=== PATIENT | female | born 1960 | race Caucasian/White ===

== ENCOUNTER 2019-11-17 09:44 | Emergency (ER) | payer MEDICARE, BC ==
[~2019-11-17] VITALS: Ht 162.6 cm; Wt 68.2 kg
[2019-11-17] MEDS ORDERED: ZOLOFT 100MG100 MG PO (10:13)
[2019-11-17] MEDS ORDERED: XANAX 0.5MG0.5 MG PO (10:14)
[2019-11-17] MEDS ORDERED: LIPITOR 40MG TA40 MG PO (10:15)
[2019-11-17] MEDS ORDERED: ZANAFLEX2 MG PO (10:17)
[2019-11-17] MEDS ORDERED: TEMOVATE0.05% TP (10:18)
[2019-11-17] MEDS ORDERED: TYLENOL W/COD1 UDTAB PO (10:18)
[2019-11-17] MEDS ORDERED: LIORESAL I (10:19)
[2019-11-17] MEDS ORDERED: [UNRECOGNIZED DRUG - OTHER] (10:19)
[2019-11-17 10:20] VITALS: TEMP 98.4
[2019-11-17] MEDS ORDERED: ESTRACE0.1 MG/GM VG (10:20)
[2019-11-17] MEDS ORDERED: NORCO 325 MG-51 TAB PO (13:16)
[2019-11-17 13:30] VITALS: BP 116/58; PULSE 64
== END 2019-11-17 13:30 | disposition home or self-care (01) ==
LOC: COL.ER 09:44
DX: M75.51 Bursitis of right shoulder (principal); F41.9 Anxiety disorder, unspecified; F32.9 Major depressive disorder, single episode, unspecified; Z90.89 Acquired absence of other organs; Z90.710 Acquired absence of both cervix and uterus; Z98.84 Bariatric surgery status; Z98.890 Other specified postprocedural states

== ENCOUNTER 2020-10-11 14:54 | Emergency (ER) | payer MEDICARE, BC ==
[~2020-10-11] VITALS: Ht 165.1 cm; Wt 68.2 kg
[~2020-10-11 14:54] MED LIST: ESTRACE0.1 MG/GM VG; LIORESAL I; LIPITOR 40MG TA40 MG PO; NORCO 325 MG-51 TAB PO; TEMOVATE0.05% TP; TYLENOL W/COD1 UDTAB PO; XANAX 0.5MG0.5 MG PO; ZANAFLEX2 MG PO; ZOLOFT 100MG100 MG PO; [UNRECOGNIZED DRUG - OTHER]
[2020-10-11 15:04] VITALS: BP 112/69; TEMP 97.7
[2020-10-11 15:25] LABS: BASO % 0.5 % (0.0-2.0); EOS # 0.1 (0.0-0.7); EOS % 1.5 % (0-4.0); GRAN # 3.5 (1.4-6.5); GRAN % 60.5 % (42.2-75.2); HEMATOCRIT 38.5 % (37.0-47.0); HEMOGLOBIN 12.5 g/dl (12.5-16.0); LYMPH # 1.6 (1.2-3.4); LYMPH % 27.6 % (20.0-51.0); MEAN CELL VOLUME 92 fl (80.0-100.0); MEAN CORPUSCULAR HEMOGLOBIN 30 pg (27.0-31.0); MEAN CORPUSCULAR HGB CONC 33 g/dl (33.0-37.0); MEAN PLATELET VOLUME 9.9 fl (7.4-10.4); MONO # 0.6 (0.1-0.6); MONO % 9.7 % (1.7-9.3); PLATELET COUNT 282 K/mm3 (130-400); RED BLOOD COUNT 4.17 M/mm3 (4.10-5.30); REDCELL DISTRIBUTION WIDTH-CV 13.3 % (11.5-14.5)
[2020-10-11 16:35] LABS: ALANINE AMINOTRANSFERASE 22 U/L (4-34); ALBUMIN 4.8 gm/dL (3.5-5.0); ALKALINE PHOSPHATASE 104 U/L (50-136); ANION GAP 9 mmol/L (7-16); AST,SGOT 32 U/L (15-37); BILIRUBIN,TOTAL 0.6 mg/dL (0.0-1.0); BLOOD UREA NITROGEN 23 mg/dL (7-17); CALCIUM 9.6 mg/dL (8.4-10.2); CARBON DIOXIDE 26 mmol/L (22-30); CHLORIDE 100 mmol/L (98-107); CREATININE, serum 0.76 (0.52-1.25); GLUCOSE 134 mg/dL (74-106); LIPASE 101 U/L (23-300); MAGNESIUM 1.8 mg/dL (1.6-2.3); POTASSIUM 4.3 mmol/L (3.4-5.0); SODIUM 135 mmol/L (137-145); TOTAL PROTEIN 7.9 gm/dL (6.4-8.2)
[2020-10-11 16:37] LABS: C-REACTIVE PROTEIN < 0.5 mg/dL (0.0-0.9)
[2020-10-11 17:13] VITALS: PULSE 75
== END 2020-10-11 17:13 | disposition home or self-care (01) ==
LOC: COL.ER 14:54
PROVIDERS: Physician Assistant
DX: R19.7 Diarrhea, unspecified (principal); E86.0 Dehydration; F41.9 Anxiety disorder, unspecified; F32.9 Major depressive disorder, single episode, unspecified; F43.10 Post-traumatic stress disorder, unspecified; Z87.891 Personal history of nicotine dependence; Z98.84 Bariatric surgery status; Z90.710 Acquired absence of both cervix and uterus; Z90.49 Acquired absence of other specified parts of digestive tract; Z88.6 Allergy status to analgesic agent
CPT/HCPCS: J2405; J7030

== ENCOUNTER 2023-09-18 10:16 | Emergency (ER) | payer MEDICARE, BC ==
[~2023-09-18] VITALS: Ht 12.7 cm; Wt 76.8 kg
[2023-09-18 10:26] VITALS: TEMP 98
[2023-09-18 12:05] LABS: ALANINE AMINOTRANSFERASE 19 U/L (0-55); ALBUMIN 3.6 gm/dL (3.4-4.8); ALKALINE PHOSPHATASE 95 U/L (40-150); ANION GAP 12 mmol/L (7-16); AST,SGOT 23 U/L (5-34); BILIRUBIN,TOTAL 0.4 mg/dL (0.2-1.2); BLOOD UREA NITROGEN 13 mg/dL (10-20); CALCIUM 9.1 mg/dL (8.4-10.2); CARBON DIOXIDE 22 mmol/L (23-31); CHLORIDE 109 mmol/L (98-107); CREATININE, serum 0.77 mg/dL (0.57-1.11); GLUCOSE 88 mg/dL (70-99); POTASSIUM 3.9 mmol/L (3.5-4.5); SODIUM 143 mmol/L (136-145); TOTAL PROTEIN 6.5 gm/dL (6.2-8.1)
[2023-09-18 12:11] LABS: TROPONIN-I < 0.010 ng/mL (0.00-0.033)
[2023-09-18 12:57] LABS: BASO % 0.4 % (0.0-2.0); EOS # 0.1 K/mm3 (0.0-0.7); EOS % 1.2 % (0.0-4.0); GRAN # 3.4 K/mm3 (1.4-6.5); HEMOGLOBIN 10.2 g/dl (12.5-16.0); LYMPH % 20.3 % (20.0-51.0); MEAN CELL VOLUME 92 fl (80.0-100.0); MEAN CORPUSCULAR HEMOGLOBIN 29 pg (27-31); MEAN CORPUSCULAR HGB CONC 32 g/dl (33.0-37.0); MEAN PLATELET VOLUME 9.8 fl (7.4-10.4); MONO # 0.4 K/mm3 (0.1-0.6); MONO % 8.9 % (1.7-9.3); PLATELET COUNT 196 K/mm3 (130-400); RED BLOOD COUNT 3.47 M/mm3 (4.10-5.30); REDCELL DISTRIBUTION WIDTH-CV 13.3 % (11.5-14.5)
[2023-09-18 13:30] VITALS: BP 150/67; PULSE 53
== END 2023-09-18 13:51 | disposition home or self-care (01) ==
LOC: COL.ER 10:16
PROVIDERS: Emergency Medicine
DX: R79.89 Other specified abnormal findings of blood chemistry (principal)
CPT/HCPCS: Q9967